=== PATIENT | female | born 1970 | race Caucasian/White ===

== ENCOUNTER 2017-04-03 04:37 | Inpatient (IN) ==
[2017-04-03 04:49] LABS: Bilirubin,Urine Negative (Negative); Blood,Urine Trace (Negative); Clarity,Urine Clear (Clear); Color,Urine Yellow (Yellow); Glucose,Urine (UA) >=1000 mg/dL (Normal); Ketones,Urine Negative (Negative); Leukocyte Esterase,Urine Small (Negative); Nitrite,Urine Negative (Negative); Protein,Urine Negative (Neg-Trace); Specific Gravity,Urine 1.019 (1.010-1.025); Urobilinogen,Urine Normal (Normal)
[2017-04-03 04:50] LABS: Bacteria,Urine None Seen per hpf (None-Few); Hyaline Casts,Urine None Seen per lpf (None-Few); Squamous Epithelial Cell,Urine Few per lpf (None-Few); WBC,Urine 30-50 per hpf (0-3)
[2017-04-03 04:53] LABS: Amphetamine Screen,Urine Negative ng/mL (Cutoff=1000); Barbiturate Screen,Urine Negative ng/mL (Cutoff=200); Benzodiazepines Screen,Urine Negative ng/mL (Cutoff=200); Cannabinoid Screen,Urine Negative ng/mL (Cutoff = 50); Cocaine Screen,Urine Negative ng/mL (Cutoff= 300); Opiate Screen,Urine Positive ng/mL (Cutoff=300); Phencyclidine Screen,Urine Negative ng/mL (Cutoff=25)
--- NOTE | 2017-04-03 04:53 | Emergency Department Note ---
Disposition Clinical Impression: Suicidal ideation Depression Qualifiers: Depression Type: unspecified Qualified Code(s): F32.9 - Major depressive disorder, single episode, unspecified Disposition: Admitted As Inpatient Condition: Good General Adult HPI - General Chief complaint: ED Psychiatric Symptoms Stated complaint: SI Time Seen by Provider: 04/03/17 04:39 Source: patient Mode of arrival: EMS Limitations: no limitations Nursing Notes Reviewed: Yes Vital Signs Reviewed: Yes - History of Present Illness HPI Narrative: 46-year-old female past medical history of diabetes, bipolar, depression. She presents with recurrent thoughts of suicide. She has a past medical history of this and has been admitted for the same. She states that the triggers include social stressors with her significant other. She said that she was trying to sleep tonight and can only think about harming herself so she decided to come to the emergency department. She denies taking any medications in an attempt to overdose. She denies an actual attempt. She denies having a fever or any new symptoms anywhere else in her body. She denies any abdominal pain or urinary difficulty. Consistency: constant Improves with: nothing Worsens with: nothing Associated symptoms: Reports: denies other symptoms Treatments Prior to Arrival: none - Related Data Previous Rx's Medication Instructions Recorded Atorvastatin Calcium [Lipitor] 20 mg PO DAILY #30 tablet 12/05/15 BuPROPion SR (12 HR) [Wellbutrin 300 mg PO DAILY #60 tablet.er 12/05/15 SR] Fexofenadine HCl 180 mg PO DAILY #30 tablet 12/05/15 Gabapentin [Neurontin] 300 mg PO BID #60 capsule 12/05/15 Gabapentin [Neurontin] 600 mg PO HS #30 capsule 12/05/15 Insulin ASPART [NovoLOG] 14 unit SQ TID #100 mls 12/05/15 Insulin Glargine [Lantus] 54 unit SQ HS #300 unit 12/05/15 Lisinopril/Hydrochlorothiazide 1 tab PO DAILY #30 tablet 12/05/15 [Zestoretic 10-12.5 mg Tablet] Norethindrone-E.estradiol-Iron 1 tab PO DAILY #30 tablet 12/05/15 [Junel Fe 1 mg-20 Mcg Tablet] Pantoprazole Sodium [Protonix] 20 mg PO DAILY #30 tablet. 12/05/15 Perphenazine 4 mg PO HS #30 tablet 12/05/15 Tizanidine HCl 4 mg PO Q8H #90 tablet 12/05/15 TraZODone 50 mg PO HS PRN #30 tablet 12/05/15 carBAMazepine [Tegretol] 300 mg PO BID #60 tablet 12/05/15 clonazePAM [Klonopin] 0.5 mg PO TID #90 tablet 12/05/15 hydrOXYzine pamoate [HydrOXYzine 50 mg PO TID PRN #180 capsule 12/05/15 Pamoate] HYDROcodone/Acet 5/325 mg [[place] 1 tab PO Q6H PRN #12 tab 08/13/16 5-325 mg] Allergies Allergy/AdvReac Type Severity Reaction Status Date / Time citalopram [From Celexa] AdvReac Diarrhea Verified 04/03/17 04:38 [place] AdvReac Diarrhea Verified 04/03/17 04:38 risperidone [From Risperdal] AdvReac Swelling Verified 04/03/17 04:38 of the Eye topiramate [From Topamax] AdvReac Fainting Verified 04/03/17 04:38 All systems ED: reviewed and negative except as stated. Constitutional: Denies: fever ENT ED: Denies: throat pain Cardiovascular: Denies: chest pain Respiratory: Denies: cough Gastrointestinal: Denies: abdominal pain Musculoskeletal: Denies: back pain Endocrine: Denies: fatigue Past Medical History - Past Medical History Medical history: Reports: arthritis, diabetes, GERD, hyperlipidemia Psychiatric history: Reports: anxiety, bipolar, PTSD [employer] history: Reports: bilateral tubal ligation - Social History Smoking Status: Former smoker Smokeless Tobacco Status: No Alcohol use: Reports: occasionally Drug use: Reports: none Physical Exam - General Limitations: no limitations General appearance: alert, in no apparent distress - Head Head exam: atraumatic - Eye Eye exam: Present: normal appearance, PERRL - ENT ENT exam: normal exam, normal oropharynx - Neck Neck exam: Present: normal inspection - Chest Chest inspection: Present: normal inspection - Respiratory Respiratory exam: Present: normal lung sounds bilaterally. Absent: respiratory distress - Cardiovascular Cardiovascular exam: Present: regular rate, normal rhythm - Abdominal Exam Abdominal exam: Present: soft, Non-Tender - Extremities Exam Extremities exam: Present: normal inspection - Neurological Exam Neurological exam: Present: alert, oriented X3 - Psychiatric Psychiatric exam: Present: depressed - Skin Skin exam: Present: warm, dry Course Course Narrative: She is tearful on my exam and is not exhibiting a toxidrome. We will obtain medical clearance for psychiatric evaluation. All labwork is resulted aside from the Tegretol level. She does have elevated white blood cells in the urine but no bacteria are seen. We will go ahead and culture this urine. In my interview the patient she denies any urinary symptoms. In addition she is not febrile has no suprapubic pain and no flank pain. Additionally she denies vaginal discharge. She is cleared for 1A evaluation. 1A will admit Vital Signs Temperature 98.5 F 04/03/17 04:39 Pulse Rate 92 04/03/17 04:39 Respiratory Rate 18 04/03/17 04:39 Blood Pressure 129/84 04/03/17 04:39 O2 Sat by Pulse Oximetry 97 04/03/17 04:39 Temperature 98.5 F 04/03/17 04:39 Pulse Rate 92 04/03/17 04:39 Respiratory Rate 18 04/03/17 04:39 Blood Pressure 129/84 04/03/17 04:39 O2 Sat by Pulse Oximetry 97 04/03/17 04:39 Oxygen Delivery Oxygen Delivery Room Air Medical Decision Making - Medical Records Medical records reviewed: Yes I reviewed the patient's medical records. - Lab Data Lab results reviewed: Yes I reviewed the patient's lab results. Result diagrams: 04/03/17 05:00 04/03/17 05:00 Lab Results 04/03/17 04/03/17 04/03/17 Range/Units 04:41 04:41 05:00 WBC 10.8 (4.3-11.1) K/mcL RBC 4.16 (3.82-4.97) M/mcL Hgb 12.1 (11.5-15.4) g/dL Hct 36.6 (35.3-44.9) % MCV 88.0 (83.0-100.0) fL MCH 29.1 (28.0-33.3) pg MCHC 33.1 (31.6-35.5) g/dL RDW 12.6 (11.5-14.5) % Plt Count 246 (140-400) K/mcL MPV 9.3 L (9.4-12.4) fL Immature Gran % 0.6 (0-4) % Seg Neutrophils % 74.7 % Lymphocytes % 17.1 % Monocytes % 6.2 % Eosinophils % 1.1 % Basophils % 0.3 % Neutrophils # 8.1 (1.6-8.9) K/mcL Lymphocytes # 1.9 (0.6-4.6) K/mcL Monocytes # 0.7 (0.0-1.3) K/mcL Eosinophils # 0.1 (0.0-0.6) K/mcL Basophils # 0.0 (0.0-0.2) K/mcL Sodium (136-145) mEq/L Potassium (3.5-4.5) mEq/L Chloride (98-109) mEq/L Carbon Dioxide (19-29) mEq/L BUN (7-20) mg/dL Creatinine (0.57-1.11) mg/dL Est GFR ( Amer) (> 60) Est GFR (Non-Af Amer) (> 60) BUN/Creatinine Ratio (6-26) Glucose (70-99) mg/dL Calculated Osmolality (280-300) Calcium (8.6-10.8) mg/dL Urine Color Yellow (Yellow) Urine Clarity Clear (Clear) Urine pH 6.0 (5.0-8.0) pH Units Ur Specific [place] 1.019 (1.010-1.025) Urine Protein Negative (Neg-Trace) mg/dL Urine Glucose (UA) >=1000 H (Normal) mg/dL Urine Ketones Negative (Negative) mg/dL Urine Blood Trace H (Negative) Urine Nitrite Negative (Negative) Urine Bilirubin Negative (Negative) Urine Urobilinogen Normal (Normal) mg/dL Ur Leukocyte Esterase Small H (Negative) Urine Microscopic RBC 3-5 H (0-3) per hpf Urine Microscopic WBC 30-50 H (0-3) per hpf Ur Squamous Epith Cells Few (None-Few) per lpf Urine Bacteria None Seen (None-Few) per hpf Hyaline Casts None Seen (None-Few) per lpf Salicylates (15-30) mg/dL Urine Opiates Screen Positive H (Iynxhi=620) ng/mL Acetaminophen (10-30) mcg/mL Ur Barbiturates Screen Negative (Rcaprp=358) ng/mL Carbamazepine (4.0-12.0) mcg/mL Ur Phencyclidine Scrn Negative (Cutoff=25) ng/mL Ur Amphetamines Screen Negative (Odzfop=1615) ng/mL U Benzodiazepines Scrn Negative (Xrarxv=117) ng/mL Urine Cocaine Screen Negative (Cutoff= 300) ng/mL U Marijuana (THC) Screen Negative (Cutoff = 50) ng/mL Ethyl Alcohol (0-10) mg/dL 04/03/17 Range/Units 05:00 WBC (4.3-11.1) K/mcL RBC (3.82-4.97) M/mcL Hgb (11.5-15.4) g/dL Hct (35.3-44.9) % MCV (83.0-100.0) fL MCH (28.0-33.3) pg MCHC (31.6-35.5) g/dL RDW (11.5-14.5) % Plt Count (140-400) K/mcL MPV (9.4-12.4) fL Immature Gran % (0-4) % Seg Neutrophils % % Lymphocytes % % Monocytes % % Eosinophils % % Basophils % % Neutrophils # (1.6-8.9) K/mcL Lymphocytes # (0.6-4.6) K/mcL Monocytes # (0.0-1.3) K/mcL Eosinophils # (0.0-0.6) K/mcL Basophils # (0.0-0.2) K/mcL Sodium 135 L (136-145) mEq/L Potassium 4.0 (3.5-4.5) mEq/L Chloride 101 (98-109) mEq/L Carbon Dioxide 24 (19-29) mEq/L BUN 13 (7-20) mg/dL Creatinine 0.93 (0.57-1.11) mg/dL Est GFR ( Amer) > 60 (> 60) Est GFR (Non-Af Amer) > 60 (> 60) BUN/Creatinine Ratio 14 (6-26) Glucose 273 H (70-99) mg/dL Calculated Osmolality 290 (280-300) Calcium 8.9 (8.6-10.8) mg/dL Urine Color (Yellow) Urine Clarity (Clear) Urine pH (5.0-8.0) pH Units Ur Specific [place] (1.010-1.025) Urine Protein (Neg-Trace) mg/dL Urine Glucose (UA) (Normal) mg/dL Urine Ketones (Negative) mg/dL Urine Blood (Negative) Urine Nitrite (Negative) Urine Bilirubin (Negative) Urine Urobilinogen (Normal) mg/dL Ur Leukocyte Esterase (Negative) Urine Microscopic RBC (0-3) per hpf Urine Microscopic WBC (0-3) per hpf Ur Squamous Epith Cells (None-Few) per lpf Urine Bacteria (None-Few) per hpf Hyaline Casts (None-Few) per lpf Salicylates < 5.0 L (15-30) mg/dL Urine Opiates Screen (Prritk=685) ng/mL Acetaminophen 1.0 L (10-30) mcg/mL Ur Barbiturates Screen (Qzvfxt=161) ng/mL Carbamazepine 5.1 (4.0-12.0) mcg/mL Ur Phencyclidine Scrn (Cutoff=25) ng/mL Ur Amphetamines Screen (Jytucn=9323) ng/mL U Benzodiazepines Scrn (Dnayxn=611) ng/mL Urine Cocaine Screen (Cutoff= 300) ng/mL U Marijuana (THC) Screen (Cutoff = 50) ng/mL Ethyl Alcohol < 10 (0-10) mg/dL Attestation Statement - Attestation Attestation: I, Tavo Nails MD, personally evaluated this patient and discussed their management with the resident physician. I reviewed the resident's note and agree with the documented findings, medical decision making, and plan of care. 46-year-old female presents to the emergency department with a complaint of suicidal ideation. No attempt. No specific plan. History of depression and suicidal thoughts in the past. On examination patient is a well-developed well-nourished well-appearing female in no acute distress. She is alert and oriented 3. There is no cyanosis or diaphoresis. Breath sounds are clear and equal bilaterally. Heart regular rate and rhythm. Abdomen soft and nontender with normal bowel sounds. No gross focal neurological deficits. Labs reviewed. 1A psychiatry service consulted to evaluate the patient. At reevaluation patient was admitted to the [address] psychiatry unit.
[2017-04-03 05:17] LABS: Basophils % 0.3 %; Eosinophils # 0.1 K/mcL (0.0-0.6); Eosinophils % 1.1 %; Hematocrit 36.6 % (35.3-44.9); Hemoglobin 12.1 g/dL (11.5-15.4); Immature Granulocytes % 0.6 % (0-4); Lymphocytes # 1.9 K/mcL (0.6-4.6); Lymphocytes % 17.1 %; Mean Corpuscular HGB Conc 33.1 g/dL (31.6-35.5); Mean Corpuscular Hemoglobin 29.1 pg (28.0-33.3); Mean Platelet Volume 9.3 fL (9.4-12.4); Monocytes # 0.7 K/mcL (0.0-1.3); Monocytes % 6.2 %; Neutrophils # 8.1 K/mcL (1.6-8.9); Platelet Count 246 K/mcL (140-400); Red Blood Count 4.16 M/mcL (3.82-4.97); Red Cell Distribution Width 12.6 % (11.5-14.5); Segmented Neutrophils % 74.7 %
[2017-04-03 05:30] LABS: BUN/Creatinine Ratio 14 (6-26); Blood Urea Nitrogen 13 mg/dL (7-20); Calcium 8.9 mg/dL (8.6-10.8); Carbon Dioxide 24 mEq/L (19-29); Chloride 101 mEq/L (98-109); Glucose 273 mg/dL (70-99); Osmolality,Calculated 290 (280-300); Sodium 135 mEq/L (136-145); eGFR For African Americans > 60 (> 60); eGFR For Non-African Americans > 60 (> 60)
[2017-04-03 05:31] LABS: Ethanol < 10 mg/dL (0-10); Salicylate < 5.0 mg/dL (15-30)
[2017-04-03 05:50] LABS: Carbamazepine (Tegretol) 5.1 mcg/mL (4.0-12.0)
[2017-04-03] MEDS ORDERED: ALPRAZolam 0.5 MG TABLET PO PRN (10:36)
[2017-04-03] MEDS ORDERED: hydrOXYzine pamoate 25 MG CAPSULE PO PRN (10:39)
[2017-04-03] MEDS ORDERED: *HR* LORazepam 2 MG/ML VIAL IM PRN (10:39)
[2017-04-03] MEDS ORDERED: Mag Hydrox/Al Hydrox/Simeth 30 ML UDC PO PRN (10:39)
[2017-04-03] MEDS ORDERED: *HR* LORazepam 1 MG TABLET PO PRN (10:39)
[2017-04-03] MEDS ORDERED: Nicotine 2 MG GUM BC PRN (10:39)
[2017-04-03] MEDS ORDERED: Haloperidol Lactate 5 MG/ML VIAL IM PRN (10:39)
[2017-04-03] MEDS ORDERED: MOM Conc 10 ML UD.LIQ PO PRN (10:39)
[2017-04-03] MEDS ORDERED: Acetaminophen 325 MG TABLET PO PRN (10:39)
[2017-04-03] MEDS ORDERED: tiZANidine 4 MG TABLET PO SCH (10:45)
[2017-04-03] MEDS ORDERED: BuPROPion SR (12 HR) 150 MG TABLET PO SCH (10:45)
--- NOTE | 2017-04-03 11:05 | Psychiatry History & Physical ---
Date of Encounter: 04/03/17 Time of Encounter: 10:45 History of Present Illness Patient Stated Chief Complaint: Suicidal ideation, insomnia Medicare Admission Attestation: For traditional Medicare patients the provided hospital inpatient services are reasonable and necessary and in the case of services not specified as inpatient -only under 42 CFR 419.22 (n), that they are appropriately provided as inpatient services in accordance 42 CFR 412.3. For Critical Access Hospital the patient may reasonably be expected to be discharged or transferred to a hospital within 96 hours after admission to the Critical Access Hospital. Admitted From: Emergency Dept History of Present Illness: Ms. Shanta Gracia is a 46 year old female with history of bipolar disorder and PTSD presented to the emergency room with complaint of suicidal ideation and insomnia. Patient has not been compliant with her medication or appointments recently. Patient most recent admission was in 11/30/[address] pichardo. She reports poor sleep, mood swings, family distress. Also she admitted to using alcohol and THC in addition to smoking and caffeine. Patient medication list was referred to primary staff from her pharmacy. She admitted to having suicidal ideation but did not have any specific plans. Past Med Surg Social Fam HX - Past Medical History Medical history: arthritis, diabetes, GERD, hyperlipidemia - Past Psychiatric History Psychiatric history: Reports: bipolar, PTSD, previous psychiatric hospitalization Past psychiatric history details: Last hospitalization 11/29/2015 - Social History Smoking Status: Former smoker Smokeless Tobacco Status: No Alcohol use: occasionally Drug use: none Medications & Allergies Atorvastatin Calcium [Lipitor] 20 mg PO DAILY #30 tablet 12/05/15 [Rx] Fexofenadine HCl 180 mg PO DAILY #30 tablet 12/05/15 [Rx] Insulin ASPART [NovoLOG] 14 unit SQ TID #100 mls 12/05/15 [Rx] Insulin Glargine [Lantus] 54 unit SQ HS #300 unit 12/05/15 [Rx] Lisinopril/Hydrochlorothiazide [Zestoretic 10-12.5 mg Tablet] 1 tab PO DAILY # 30 tablet 12/05/15 [Rx] Norethindrone-E.estradiol-Iron [Junel Fe 1 mg-20 Mcg Tablet] 1 tab PO DAILY #30 tablet 12/05/15 [Rx] Pantoprazole Sodium [Protonix] 20 mg PO DAILY #30 diana. 12/05/15 [Rx] Tizanidine HCl 4 mg PO Q8H #90 tablet 12/05/15 [Rx] TraZODone 50 mg PO HS PRN #30 tablet 12/05/15 [Rx] carBAMazepine [Tegretol] 300 mg PO BID #60 tablet 12/05/15 [Rx] ALPRAZolam [Xanax 0.5 MG Tablet] 0.5 mg PO BID PRN 04/03/17 [History] BuPROPion SR (12 HR) [Wellbutrin SR] 150 mg PO BID 04/03/17 [History] Gabapentin [Neurontin] 600 mg PO QID 04/03/17 [History] HYDROcodone/Acet 10/325 mg [[place] 10-325 mg] 1 tab PO Q6HR PRN 04/03/17 [History ] Perphenazine 4 - 8 mg PO HS 04/03/17 [History] 3 Allergy/AdvReac Type Severity Reaction Status Date / Time citalopram [From Celexa] AdvReac Diarrhea Verified 04/03/17 04:38 [place] AdvReac Diarrhea Verified 04/03/17 04:38 risperidone [From Risperdal] AdvReac Swelling Verified 04/03/17 04:38 of the Eye topiramate [From Topamax] AdvReac Fainting Verified 04/03/17 04:38 Review of Systems Psychiatric: Reports: depression, suicidal ideation, mood swings Mental Status Exam Patient orientation: Yes Person, Yes Time, Yes Place Level of alertness: Alert Patient appearance: Appropriate, Well Groomed Behavior: calm, cooperative Psychomotor activity: Normal Eye contact: Maintains Eye Contact Mood description: Euthymic/stable, Anxious Affect description: congruent with mood, full range, dysphoric Speech pattern: Normal rate, Normal rhythm, Normal tone Speech volume: Normal Thought process: Linear, Goal Oriented Thought content: Yes Suicidal ideation, No Homicidal ideation, No Overt delusions Perceptual disturbances: No Auditory hallucinations, No Visual hallucinations Attention span: Capable of Focused Attention Memory description: Grossly Intact Patient reliability: Reliable Historian Intelligence estimate: Average Judgment: Limited Insight: Partial Results - Vital Signs Vital signs: Temp Pulse Resp BP Pulse Ox 98.5 F 92 18 129/84 97 04/03/17 04:39 04/03/17 04:39 04/03/17 04:39 04/03/17 04:39 04/03/17 04:39 - Labs Labs: Laboratory Last Values WBC 10.8 K/mcL (4.3-11.1) 04/03/17 05:00 RBC 4.16 M/mcL (3.82-4.97) 04/03/17 05:00 Hgb 12.1 g/dL (11.5-15.4) 04/03/17 05:00 Hct 36.6 % (35.3-44.9) 04/03/17 05:00 MCV 88.0 fL (83.0-100.0) 04/03/17 05:00 MCH 29.1 pg (28.0-33.3) 04/03/17 05:00 MCHC 33.1 g/dL (31.6-35.5) 04/03/17 05:00 RDW 12.6 % (11.5-14.5) 04/03/17 05:00 Plt Count 246 K/mcL (140-400) 04/03/17 05:00 MPV 9.3 fL (9.4-12.4) L 04/03/17 05:00 Immature Gran % 0.6 % (0-4) 04/03/17 05:00 Seg Neutrophils % 74.7 % 04/03/17 05:00 Lymphocytes % 17.1 % 04/03/17 05:00 Monocytes % 6.2 % 04/03/17 05:00 Eosinophils % 1.1 % 04/03/17 05:00 Basophils % 0.3 % 04/03/17 05:00 Neutrophils # 8.1 K/mcL (1.6-8.9) 04/03/17 05:00 Lymphocytes # 1.9 K/mcL (0.6-4.6) 04/03/17 05:00 Monocytes # 0.7 K/mcL (0.0-1.3) 04/03/17 05:00 Eosinophils # 0.1 K/mcL (0.0-0.6) 04/03/17 05:00 Basophils # 0.0 K/mcL (0.0-0.2) 04/03/17 05:00 Sodium 135 mEq/L (136-145) L 04/03/17 05:00 Potassium 4.0 mEq/L (3.5-4.5) 04/03/17 05:00 Chloride 101 mEq/L (98-109) 04/03/17 05:00 Carbon Dioxide 24 mEq/L (19-29) 04/03/17 05:00 BUN 13 mg/dL (7-20) 04/03/17 05:00 Creatinine 0.93 mg/dL (0.57-1.11) 04/03/17 05:00 Est GFR ( Amer) > 60 (> 60) 04/03/17 05:00 Est GFR (Non-Af Amer) > 60 (> 60) 04/03/17 05:00 BUN/Creatinine Ratio 14 (6-26) 04/03/17 05:00 Glucose 273 mg/dL (70-99) H 04/03/17 05:00 POC Glucose 226 (58-89) H 04/03/17 08:13 Calculated Osmolality 290 (280-300) 04/03/17 05:00 Calcium 8.9 mg/dL (8.6-10.8) 04/03/17 05:00 Urine Color Yellow (Yellow) 04/03/17 04:41 Urine Clarity Clear (Clear) 04/03/17 04:41 Urine pH 6.0 pH Units (5.0-8.0) 04/03/17 04:41 Ur Specific [place] 1.019 (1.010-1.025) 04/03/17 04:41 Urine Protein Negative mg/dL (Neg-Trace) 04/03/17 04:41 Urine Glucose (UA) >=1000 mg/dL (Normal) H 04/03/17 04:41 Urine Ketones Negative mg/dL (Negative) 04/03/17 04:41 Urine Blood Trace (Negative) H 04/03/17 04:41 Urine Nitrite Negative (Negative) 04/03/17 04:41 Urine Bilirubin Negative (Negative) 04/03/17 04:41 Urine Urobilinogen Normal mg/dL (Normal) 04/03/17 04:41 Ur Leukocyte Esterase Small (Negative) H 04/03/17 04:41 Urine Microscopic RBC 3-5 per hpf (0-3) H 04/03/17 04:41 Urine Microscopic WBC 30-50 per hpf (0-3) H 04/03/17 04:41 Ur Squamous Epith Cells Few per lpf (None-Few) 04/03/17 04:41 Urine Bacteria None Seen per hpf (None-Few) 04/03/17 04:41 Hyaline Casts None Seen per lpf (None-Few) 04/03/17 04:41 Salicylates < 5.0 mg/dL (15-30) L 04/03/17 05:00 Urine Opiates Screen Positive ng/mL (Nzdxyy=456) H 04/03/17 04:41 Acetaminophen 1.0 mcg/mL (10-30) L 04/03/17 05:00 Ur Barbiturates Screen Negative ng/mL (Zzxqqw=767) 04/03/17 04:41 Carbamazepine 5.1 mcg/mL (4.0-12.0) 04/03/17 05:00 Ur Phencyclidine Scrn Negative ng/mL (Cutoff=25) 04/03/17 04:41 Ur Amphetamines Screen Negative ng/mL (Ghrder=1575) 04/03/17 04:41 U Benzodiazepines Scrn Negative ng/mL (Bqtbke=474) 04/03/17 04:41 Urine Cocaine Screen Negative ng/mL (Cutoff= 300) 04/03/17 04:41 U Marijuana (THC) Screen Negative ng/mL (Cutoff = 50) 04/03/17 04:41 Ethyl Alcohol < 10 mg/dL (0-10) 04/03/17 05:00 Assessment and Plan (1) Suicidal ideation Current visit: Yes Status: Acute Plan: Admit inpatient for safety and stabilization, Close observation, Suicide Precautions per unit protocol, Encourage participation in unit milieu, Group Therapy, Monitor sleep, Monitor appetite Risks, benefits, side effects, alternatives discussed w/pt: Yes Patient agreeable to treatment: Yes (2) Bipolar disorder Current visit: Yes Status: Acute Plan: Admit inpatient for safety and stabilization, Close observation, Suicide Precautions per unit protocol, Encourage participation in unit milieu, Group Therapy, Monitor sleep, Monitor appetite Additional Plan: We will check Tegretol level and restart medication after review Risks, benefits, side effects, alternatives discussed w/pt: Yes Patient agreeable to treatment: Yes Qualifiers: Active/Remission status: in partial remission Most recent bipolar episode type: depressed Qualified Code(s): F31.75 - Bipolar disorder, in partial remission, most recent episode depressed
[2017-04-03] MEDS: Gabapentin 300 MG CAPSULE PO SCH ×3 (11:36→20:57)
[2017-04-03] MEDS: BuPROPion SR (12 HR) 150 MG TABLET PO SCH ×2 (11:36→20:58)
[2017-04-03] MEDS: carBAMazepine 200 MG TABLET PO SCH ×2 (11:38→20:58)
[2017-04-03] MEDS: Loratadine 10 MG TABLET PO SCH (11:39)
[2017-04-03] MEDS: Insulin LISPRO 300 UNITS/3 ML VIAL SQ SCH ×2 (11:40→16:09)
[2017-04-03 12:11] LABS: Hemoglobin A1C 10.5 %
[2017-04-03] MEDS ORDERED: Insulin LISPRO 300 UNITS/3 ML VIAL SQ SCH (15:00)
[2017-04-03] MEDS: traZODone 50 MG TABLET PO PRN (20:58)
[2017-04-03] MEDS: Perphenazine 2 MG TABLET PO SCH (20:58)
[2017-04-03] MEDS: Insulin DETEMIR 100 UNIT/ML X5UNITS SQ SCH (20:58)
[2017-04-03] MEDS ORDERED: INSULIN GLARGINE 54 UNIT SQ SCH (21:00)
[2017-04-03] MEDS: tiZANidine 4 MG TABLET PO PRN (21:03)
[2017-04-04] MEDS: Insulin LISPRO 300 UNITS/3 ML VIAL SQ SCH ×3 (09:05→16:48)
[2017-04-04] MEDS: Gabapentin 300 MG CAPSULE PO SCH ×4 (09:06→21:12)
[2017-04-04] MEDS: BuPROPion SR (12 HR) 150 MG TABLET PO SCH ×2 (09:06→21:12)
[2017-04-04] MEDS: carBAMazepine 200 MG TABLET PO SCH ×2 (09:07→21:12)
[2017-04-04] MEDS: Loratadine 10 MG TABLET PO SCH (09:07)
[2017-04-04] MEDS: NORETHINDRONE E ESTRADIOL IRON PO SCH (09:10)
--- NOTE | 2017-04-04 16:09 | Psychiatry Progress Note ---
Date of Encounter: 04/04/17 Time of Encounter: 15:00 Subjective Interval history: Patient seen for follow-up. She reports feeling better and denies any problems. She reported improvement in her mood and denies suicidal ideation. Her medications were reviewed and doses were corrected. Tegretol level was ordered but the results was inconsistent and repeat was ordered. She denies any suicidal ideation or mood swings. Review of Systems Psychiatric: Reports: depression, suicidal ideation, mood swings Objective: Exam Patient orientation: Yes Person, Yes Time, Yes Place Level of alertness: Alert Patient appearance: Appropriate, Well Groomed Behavior: calm, cooperative Psychomotor activity: Normal Eye contact: Maintains Eye Contact Mood description: Euthymic/stable, Labile Affect description: congruent with mood, full range, labile Speech pattern: Normal rate, Normal rhythm, Normal tone Speech volume: Normal Thought process: Linear, Goal Oriented Thought content: No Suicidal ideation, No Homicidal ideation, No Overt delusions Perceptual disturbances: No Auditory hallucinations, No Visual hallucinations Judgment: Fair Insight: Partial Results - Vital Signs Vital Signs: Temp Pulse Resp BP Pulse Ox 97.2 F L 78 16 132/77 97 04/04/17 09:00 04/04/17 09:00 04/04/17 09:00 04/04/17 09:00 04/03/17 04:39 Assessment and Plan (1) Suicidal ideation Current visit: Yes Status: Acute Plan: Continue hospitalization, Close observation, Suicide Precautions per unit protocol, Encourage participation in unit milieu, Group Therapy, Monitor sleep, Monitor appetite Risks, benefits, side effects, alternatives discussed w/pt: Yes Patient agreeable to treatment: Yes (2) Bipolar disorder Current visit: Yes Status: Acute Plan: Continue hospitalization, Close observation, Suicide Precautions per unit protocol, Encourage participation in unit milieu, Group Therapy, Monitor sleep, Monitor appetite Risks, benefits, side effects, alternatives discussed w/pt: Yes Patient agreeable to treatment: Yes Qualifiers: Active/Remission status: in partial remission Most recent bipolar episode type: depressed Qualified Code(s): F31.75 - Bipolar disorder, in partial remission, most recent episode depressed Consult Discharge Plan - Plan Referrals: NONE,PCP [Primary Care Provider] -
[2017-04-04] MEDS: Insulin DETEMIR 100 UNIT/ML X5UNITS SQ SCH (21:11)
[2017-04-04] MEDS: Perphenazine 2 MG TABLET PO SCH (21:12)
[2017-04-04] MEDS: traZODone 50 MG TABLET PO PRN (23:20)
[2017-04-04] MEDS: tiZANidine 4 MG TABLET PO PRN (23:20)
[2017-04-05] MEDS: Insulin LISPRO 300 UNITS/3 ML VIAL SQ SCH ×3 (08:25→17:02)
[2017-04-05] MEDS: BuPROPion SR (12 HR) 150 MG TABLET PO SCH ×2 (08:42→20:29)
[2017-04-05] MEDS: Gabapentin 300 MG CAPSULE PO SCH ×4 (08:44→20:25)
[2017-04-05] MEDS: carBAMazepine 200 MG TABLET PO SCH ×2 (08:44→20:55)
[2017-04-05] MEDS: NORETHINDRONE E ESTRADIOL IRON PO SCH (08:45)
[2017-04-05] MEDS: Loratadine 10 MG TABLET PO SCH (08:45)
--- NOTE | 2017-04-05 11:35 | Psychiatry Progress Note ---
Date of Encounter: 04/05/17 Time of Encounter: 11:33 Subjective Interval history: Patient is here for follow-up. She reported improved sleep and denied any suicidal ideation. I shared with her the lab results including hemoglobin A1c of 10.5 due to noncompliance with medication. Current blood sugars are improving. Also I will repeat Tegretol level in the morning. She is participating and groups in activities and denies any anxiety or irritability. Review of Systems Psychiatric: Reports: depression, suicidal ideation, mood swings Objective: Exam Patient orientation: Yes Person, Yes Time, Yes Place Level of alertness: Alert Patient appearance: Appropriate, Well Groomed Behavior: calm, cooperative, anxious Psychomotor activity: Normal Eye contact: Maintains Eye Contact Mood description: Euthymic/stable, Anxious Affect description: congruent with mood, labile Speech pattern: Normal rate, Normal rhythm, Normal tone Speech volume: Normal Thought process: Linear, Goal Oriented Thought content: No Suicidal ideation, No Homicidal ideation, No Overt delusions Perceptual disturbances: No Auditory hallucinations, No Visual hallucinations Judgment: Fair Insight: Partial Results - Vital Signs Vital Signs: Temp Pulse Resp BP Pulse Ox 97.2 F L 79 16 128/76 97 04/05/17 09:00 04/05/17 09:00 04/05/17 09:00 04/05/17 09:00 04/03/17 04:39 - Labs Labs: Laboratory Results - last 24 hr 04/04/17 04/04/17 04/05/17 16:40 20:56 08:20 POC Glucose 116 H 176 H 75 Assessment and Plan (1) Suicidal ideation Current visit: Yes Status: Acute Plan: Continue hospitalization, Close observation, Suicide Precautions per unit protocol, Encourage participation in unit milieu, Group Therapy, Monitor sleep, Monitor appetite Risks, benefits, side effects, alternatives discussed w/pt: Yes Patient agreeable to treatment: Yes (2) Bipolar disorder Current visit: Yes Status: Acute Plan: Continue hospitalization, Close observation, Suicide Precautions per unit protocol, Encourage participation in unit milieu, Group Therapy, Monitor sleep, Monitor appetite Risks, benefits, side effects, alternatives discussed w/pt: Yes Patient agreeable to treatment: Yes Qualifiers: Active/Remission status: in partial remission Most recent bipolar episode type: depressed Qualified Code(s): F31.75 - Bipolar disorder, in partial remission, most recent episode depressed (3) PTSD (post-traumatic stress disorder) Current visit: No Status: Acute Consult Discharge Plan - Plan Referrals: NONE,PCP [Primary Care Provider] -
[2017-04-05] MEDS: Insulin DETEMIR 100 UNIT/ML X5UNITS SQ SCH (20:29)
[2017-04-05] MEDS: Perphenazine 2 MG TABLET PO SCH (20:29)
[2017-04-05] MEDS: traZODone 50 MG TABLET PO PRN (22:16)
[2017-04-06] MEDS: Insulin LISPRO 300 UNITS/3 ML VIAL SQ SCH ×2 (08:25→11:41)
[2017-04-06] MEDS: carBAMazepine 200 MG TABLET PO SCH (08:33)
[2017-04-06] MEDS: Gabapentin 300 MG CAPSULE PO SCH ×2 (08:36→12:34)
[2017-04-06] MEDS: Loratadine 10 MG TABLET PO SCH (08:36)
[2017-04-06] MEDS: BuPROPion SR (12 HR) 150 MG TABLET PO SCH (08:36)
[2017-04-06] MEDS: NORETHINDRONE E ESTRADIOL IRON PO SCH (08:41)
[2017-04-06 10:00] VITALS: BP 117/79
--- NOTE | 2017-04-06 14:07 | Discharge Summary ---
Date of Encounter: 04/06/17 Time of Encounter: 14:00 Diagnosis - Discharge Diagnosis (1) Suicidal ideation Status: Acute (2) Bipolar disorder Status: Acute Qualifiers: Active/Remission status: in partial remission Most recent bipolar episode type: depressed Qualified Code(s): F31.75 - Bipolar disorder, in partial remission, most recent episode depressed (3) PTSD (post-traumatic stress disorder) Status: Acute Medications - Discharge Medications Atorvastatin Calcium [Lipitor] 20 mg PO DAILY #30 tablet 12/05/15 [Rx] Fexofenadine HCl 180 mg PO DAILY #30 tablet 12/05/15 [Rx] Insulin ASPART [NovoLOG] 14 unit SQ TID #100 mls 12/05/15 [Rx] Insulin Glargine [Lantus] 54 unit SQ HS #300 unit 12/05/15 [Rx] Lisinopril/Hydrochlorothiazide [Zestoretic 10-12.5 mg Tablet] 1 tab PO DAILY # 30 tablet 12/05/15 [Rx] Norethindrone-E.estradiol-Iron [Junel Fe 1 mg-20 Mcg Tablet] 1 tab PO DAILY #30 tablet 12/05/15 [Rx] Pantoprazole Sodium [Protonix] 20 mg PO DAILY #30 tablet. 12/05/15 [Rx] Tizanidine HCl 4 mg PO Q8H #90 tablet 12/05/15 [Rx] TraZODone 50 mg PO HS PRN #30 tablet 12/05/15 [Rx] carBAMazepine [Tegretol] 300 mg PO BID #60 tablet 12/05/15 [Rx] ALPRAZolam [Xanax 0.5 MG Tablet] 0.5 mg PO BID PRN 04/03/17 [History] BuPROPion SR (12 HR) [Wellbutrin SR] 150 mg PO BID 04/03/17 [History] Gabapentin [Neurontin] 600 mg PO QID 04/03/17 [History] HYDROcodone/Acet 10/325 mg [Coffeen 10-325 mg] 1 tab PO Q6HR PRN 04/03/17 [History ] Perphenazine 4 - 8 mg PO HS 04/03/17 [History] 3 Allergy/AdvReac Type Severity Reaction Status Date / Time citalopram [From Celexa] AdvReac Diarrhea Verified 04/03/17 04:38 [place] AdvReac Diarrhea Verified 04/03/17 04:38 risperidone [From Risperdal] AdvReac Swelling Verified 04/03/17 04:38 of the Eye topiramate [From Topamax] AdvReac Fainting Verified 04/03/17 04:38 Results Procedures and tests throughout hospitalization: Completed Lab Orders Category Date Time Status Carbamazepine (Tegretol) AM 0400 Lab 04/06/17 06:45 Completed Provider Date of admission: 04/04/17 11:55 Primary care physician: PCP NONE Discharging clinician: Candelario Boyd Assessment and Plan - Patient/Caregiver Discharge Instructions Activity: resume usual activities as tolerated Diet: regular diet - Follow up Plan Follow up with: [facility]GAD[facility] [Outside] (The above appointment is with Kira Womack, for outpatient psychiatric assessment and medication management services. Please arrive 30 minutes early to complete paperwork. Please bring your photo ID (bring proof of address if you do not have an ID) and medication list. The above appointment(s) reflects first availability. You may contact the office regularly to check for cancellations that may allow you to be seen sooner. Additionally, the new case packer assigned to you will contact you directly to schedule your intake appointment for case management and mental health counseling services. ) Functional capacity at discharge: independent ambulation Overall status at discharge: Stable Disposition: Home, Self-Care Hospital Course Hospital course: Ms. Shanta Gracia is a 46 year old female admitted for suicidal ideation and bipolar disorder exacerbation. For details of admission please see H&P On the units patient medications were reviewed, we corrected the dose of Wellbutrin. Initial Tegretol level was inaccurate, repeats level was therapeutic at 4.9. Patient showed improvement in her mood and affect she was not labile, speech was organized and not pressured, she reported improved sleep and improved energy. She denies suicidal ideation and denied any side effects to medication. Discharge plans were completed by social work and she was educated to the poor treatment compliance. On discharge patient was medically stable nonsuicidal, tolerated the medication without any side effects and motivated to continue follow-up. Discharge in stable condition. - Time Spent with Patient Total time spent providing and/or coordinating discharge services: Greater than 30 minutes Quality - Multiple Antipsychotics Patient discharged on 2 or more antipsychotic medications: No Procedures - Procedures Procedures: Medication Management, Crisis Stabilization, Supportive Therapy, Group Therapy, Psychoeducational Therapy Mental Status Exam - Mental Status Exam Patient orientation: Yes Person, Yes Time, Yes Place Level of alertness: Alert Patient appearance: Appropriate, Well Groomed Behavior: calm, cooperative Psychomotor activity: Normal Eye contact: Maintains Eye Contact Mood description: Euthymic/stable Affect description: congruent with mood, full range Speech pattern: Normal rate, Normal rhythm, Normal tone Speech Volume: Normal Thought process: Linear, Goal Oriented Thought Content: No Suicidal ideation, No Homicidal ideation, No Overt delusions Perceptual Disturbances: No Auditory hallucinations, No Visual hallucinations Judgment: Limited Insight: Partial
== END 2017-04-06 15:50 | disposition home or self-care (01) | DRG 753 ==
LOC: EMEROO 04:37 → 1ANU 04:37
PROVIDERS: ADMIT Psychiatry & Neurology Psychiatry; ATTEND Psychiatry & Neurology Psychiatry

== ENCOUNTER 2022-01-02 09:56 | Inpatient (IN) ==
[2022-01-02 11:21] LABS: Basophils # 0.2 K/mcL (0.0-0.2); Basophils % 1.2 %; Eosinophils % 0.3 %; Hematocrit 50.9 % (35.3-44.9); Hemoglobin 16.3 g/dL (11.5-15.4); Immature Granulocytes % 3.8 % (0-4); Lymphocytes # 1.8 K/mcL (0.6-4.6); Lymphocytes % 12.9 %; Mean Corpuscular Hemoglobin 28.3 pg (28.0-33.3); Mean Corpuscular Volume 88.4 fL (83.0-100.0); Mean Platelet Volume 9.4 fL (9.4-12.4); Monocytes % 7.6 %; Neutrophils # 10.2 K/mcL (1.6-8.9); Platelet Count 339 K/mcL (140-400); Red Blood Count 5.76 M/mcL (3.82-4.97); Red Cell Distribution Width 12.9 % (11.5-14.5); Segmented Neutrophils % 74.2 %; White Blood Count 13.7 K/mcL (4.3-11.1)
[2022-01-02 11:36] LABS: Alanine Aminotransferase 17 Units/L (7-52); Albumin 5.1 g/dL (3.5-5.7); Albumin/Globulin Ratio 1.7 (1.1-2.2); Alkaline Phosphatase 122 Units/L (34-104); Amylase 16 Units/L (29-103); Aspartate Amino Transferase 13 Units/L (13-39); BUN/Creatinine Ratio 11 (6-26); Bilirubin,Direct 0.1 mg/dL (0.0-0.2); Bilirubin,Indirect 0.3 mg/dL (0.0-1.0); Bilirubin,Total 0.4 mg/dL (0.3-1.0); Blood Urea Nitrogen 14 mg/dL (6-20); Carbon Dioxide 6 mEq/L (23-29); Chloride 91 mEq/L (98-107); Glucose 456 mg/dL (70-105); Lipase 37 Units/L (11-82); Osmolality,Calculated 280 (280-300); Potassium 4.4 mEq/L (3.5-5.1); Sodium 125 mEq/L (136-145); Total Protein 8.1 g/dL (6.4-8.9); eGFR For African Americans 56 (> 60); eGFR For Non-African Americans 46 (> 60)
[2022-01-02 11:39] LABS: Bilirubin,Urine Negative (Negative); Blood,Urine Small (Negative); Clarity,Urine Clear (Clear); Color,Urine Light-Yellow (Yellow); Glucose,Urine (UA) >=1000 mg/dL (Normal); Hyaline Casts,Urine Few per lpf (None Seen); Ketones,Urine >150 mg/dL (Negative); Leukocyte Esterase,Urine Negative (Negative); Mucus,Urine Few per lpf (None-Few); Nitrite,Urine Negative (Negative); PH,Urine 5.5 pH Units (5.0-8.0); Protein,Urine 100 mg/dL (Neg-Trace); RBC,Urine 0-3 per hpf (0-3); Specific Gravity,Urine 1.027 (1.010-1.025); Squamous Epithelial Cell,Urine Few per hpf (None-Few); Urobilinogen,Urine Normal (Normal); WBC,Urine 0-3 per hpf (0-3)
[2022-01-02] MEDS ORDERED: Ondansetron 4 MG/2 ML VIAL IVP ONE (11:45)
[2022-01-02] MEDS ORDERED: Insulin Regular, Human 100 UNIT/ML IV ONE (11:49)
[2022-01-02] MEDS ORDERED: 0.9 % Sodium Chloride 1,000 ML IVC ONE (11:53)
[2022-01-02] MEDS: 0.9 % Sodium Chloride 1,000 ML IVC ONE ×2 (11:59→12:37)
[2022-01-02] MEDS ORDERED: 0.9 % Sodium Chloride w KCl 40 MEQ/1,000 ML MLS IVC SCH (12:00)
[2022-01-02 12:45] LABS: VBG HCO3 6 mEq/L (21-27); VBG PCO2 25 mmHg (41-51); VBG PH 6.96 pH Units (7.32-7.42); VBG PO2 151 mmHg (25-50)
[2022-01-02 12:53] LABS: Influenza A PCR Negative (Negative); Influenza B PCR Negative (Negative); Resp. Syncytial Virus PCR Negative (Negative)
[2022-01-02 12:54] LABS: SARS-CoV-2 by PCR (In House) Negative (Negative)
[2022-01-02 14:44] LABS: VBG HCO3 6 mEq/L (21-27); VBG PCO2 25 mmHg (41-51); VBG PH 6.95 pH Units (7.32-7.42); VBG PO2 69 mmHg (25-50)
[2022-01-02] MEDS ORDERED: Ondansetron 4 MG/2 ML VIAL IVP PRN (14:51)
[2022-01-02] MEDS ORDERED: Naloxone 0.4 MG/ML INJ IVP PRN (14:51)
[2022-01-02] MEDS ORDERED: Acetaminophen 325 MG TABLET PO PRN (14:51)
[2022-01-02] MEDS ORDERED: *HR* Dextrose 50 % in Water (Syg) 50 ML SYRINGE IVP PRN (14:58)
[2022-01-02] MEDS ORDERED: Sodium Bicarbonate 150 MEQ in D5% in Water 1,000 ML IVC SCH (15:15)
[2022-01-02 15:18] LABS: Amphetamine Screen,Urine Negative ng/mL (Cutoff=1000); Barbiturate Screen,Urine Negative ng/mL (Cutoff=200); Benzodiazepines Screen,Urine Negative ng/mL (Cutoff=200); Cannabinoid Screen,Urine Positive ng/mL (Cutoff = 50); Cocaine Screen,Urine Negative ng/mL (Cutoff= 300); Opiate Screen,Urine Negative ng/mL (Cutoff=300); Phencyclidine Screen,Urine Negative ng/mL (Cutoff=25)
[2022-01-02 15:22] LABS: Magnesium 2.3 mg/dL (1.6-2.6); Phosphorous 4.4 mg/dL (2.7-4.5); Salicylate < 2.5 mg/dL (15.0-30.0)
[2022-01-02] MEDS: 0.45 % Sodium Chloride w/KCl 20 MEQ/1,000 ML MLS IVC SCH ×3 (16:49→19:18)
[2022-01-02 18:12] LABS: BUN/Creatinine Ratio 12 (6-26); Blood Urea Nitrogen 13 mg/dL (6-20); Calcium 7.9 mg/dL (8.6-10.3); Chloride 102 mEq/L (98-107); Glucose 167 mg/dL (70-105); Osmolality,Calculated 270 (280-300); Potassium 4.5 mEq/L (3.5-5.1); Sodium 128 mEq/L (136-145); eGFR For African Americans > 60 (> 60); eGFR For Non-African Americans 53 (> 60)
[2022-01-02] MEDS: D5% in 0.45% NACL w KCl 20 MEQ/1,000 ML MLS IVC PRN ×2 (18:21→22:43)
[2022-01-02 18:33] LABS: VBG HCO3 8 mEq/L (21-27); VBG PCO2 28 mmHg (41-51); VBG PH 7.04 pH Units (7.32-7.42); VBG PO2 68 mmHg (25-50)
[2022-01-02] MEDS: Pantoprazole 40 MG VIAL IVP SCH (19:53)
[2022-01-02] MEDS: *HR* Labetalol 20 MG/4 ML SYRINGE IVP PRN (19:53)
[2022-01-02] MEDS ORDERED: Ketorolac 30 MG/ML VIAL IVP ONE (22:34)
[2022-01-02] MEDS ORDERED: tiZANidine 4 MG TABLET PO PRN (22:51)
[2022-01-02] MEDS ORDERED: Perphenazine 8 MG TABLET PO PRN (22:52)
[2022-01-02 23:09] LABS: VBG HCO3 12 mEq/L (21-27); VBG PCO2 28 mmHg (41-51); VBG PH 7.23 pH Units (7.32-7.42); VBG PO2 102 mmHg (25-50)
[2022-01-02 23:21] LABS: Carbon Dioxide < 4 mEq/L (23-29)
[2022-01-02] MEDS: *HR* OxyCODONE/APAP 7.5/325 TABLET PO PRN (23:36)
[2022-01-02 23:56] LABS: BUN/Creatinine Ratio 9 (6-26); Blood Urea Nitrogen 8 mg/dL (6-20); Calcium 7.5 mg/dL (8.6-10.3); Carbon Dioxide 12 mEq/L (23-29); Chloride 104 mEq/L (98-107); Glucose 154 mg/dL (70-105); Osmolality,Calculated 267 (280-300); Potassium 3.7 mEq/L (3.5-5.1); Sodium 128 mEq/L (136-145); eGFR For African Americans > 60 (> 60); eGFR For Non-African Americans > 60 (> 60)
[2022-01-03] MEDS ORDERED: Perphenazine 8 MG TABLET PO PRN (00:07)
[2022-01-03] MEDS: 0.45 % Sodium Chloride w/KCl 20 MEQ/1,000 ML MLS IVC SCH ×4 (00:44→09:11)
[2022-01-03] MEDS: D5% in 0.45% NACL w KCl 20 MEQ/1,000 ML MLS IVC PRN (02:45)
[2022-01-03 03:20] LABS: Basophils # 0.1 K/mcL (0.0-0.2); Basophils % 0.5 %; Eosinophils % 0.4 %; Hematocrit 36.7 % (35.3-44.9); Hemoglobin 12.6 g/dL (11.5-15.4); Immature Granulocytes % 1.9 % (0-4); Lymphocytes # 3.5 K/mcL (0.6-4.6); Lymphocytes % 32.1 %; Mean Corpuscular HGB Conc 34.3 g/dL (31.6-35.5); Mean Corpuscular Hemoglobin 28.7 pg (28.0-33.3); Mean Corpuscular Volume 83.6 fL (83.0-100.0); Mean Platelet Volume 9.1 fL (9.4-12.4); Monocytes # 1.1 K/mcL (0.0-1.3); Monocytes % 9.8 %; Platelet Count 216 K/mcL (140-400); Red Blood Count 4.39 M/mcL (3.82-4.97); Red Cell Distribution Width 12.8 % (11.5-14.5); Segmented Neutrophils % 55.3 %; White Blood Count 10.8 K/mcL (4.3-11.1)
[2022-01-03 03:27] LABS: Estimated Average Glucose 329 mg/dl; Hemoglobin A1C 13.1 %
[2022-01-03 03:43] LABS: BUN/Creatinine Ratio 8 (6-26); Blood Urea Nitrogen 7 mg/dL (6-20); Calcium 7.6 mg/dL (8.6-10.3); Carbon Dioxide 16 mEq/L (23-29); Chloride 105 mEq/L (98-107); Glucose 124 mg/dL (70-105); Magnesium 1.8 mg/dL (1.6-2.6); Osmolality,Calculated 267 (280-300); Phosphorous 1.3 mg/dL (2.7-4.5); Potassium 3.4 mEq/L (3.5-5.1); Sodium 129 mEq/L (136-145); eGFR For African Americans > 60 (> 60); eGFR For Non-African Americans > 60 (> 60)
[2022-01-03 07:13] LABS: VBG HCO3 13 mEq/L (21-27); VBG PCO2 29 mmHg (41-51); VBG PH 7.28 pH Units (7.32-7.42); VBG PO2 173 mmHg (25-50)
[2022-01-03] MEDS ORDERED: Potassium Phosphate 44 MEQ in 0.9 % Sodium Chloride 250 ML IVPB ONE (07:22)
[2022-01-03] MEDS ORDERED: *HR* Dextrose 50 % in Water (Syg) 50 ML SYRINGE IVP PRN (07:23)
[2022-01-03] MEDS ORDERED: Dextrose Gel 15 GM/37.5 ML TUBE PO PRN ×2 (07:23)
[2022-01-03] MEDS ORDERED: D5% in Water 1,000 ML IVC PRN (07:23)
[2022-01-03 08:12] LABS: BUN/Creatinine Ratio 8 (6-26); Blood Urea Nitrogen 6 mg/dL (6-20); Calcium 7.5 mg/dL (8.6-10.3); Carbon Dioxide 14 mEq/L (23-29); Chloride 103 mEq/L (98-107); Glucose 181 mg/dL (70-105); Osmolality,Calculated 268 (280-300); Potassium 3.3 mEq/L (3.5-5.1); Sodium 128 mEq/L (136-145); eGFR For African Americans > 60 (> 60); eGFR For Non-African Americans > 60 (> 60)
[2022-01-03] MEDS: Insulin DETEMIR 100 UNIT/ML X5UNITS SUBQ SCH ×2 (08:45→21:44)
[2022-01-03] MEDS: *HR* Enoxaparin 40 MG/0.4 ML SYRINGE SQ SCH (09:12)
[2022-01-03] MEDS: Pantoprazole 40 MG VIAL IVP SCH (09:13)
[2022-01-03] MEDS: Insulin LISPRO 300 UNITS/3 ML VIAL SUBQ SCH ×3 (09:42→16:39)
[2022-01-03] MEDS ORDERED: Sennosides/Docusate Sodium TABLET PO PRN (09:54)
[2022-01-03] MEDS: polyethylene glycoL 3350 17 GM POWD.PACK PO SCH (10:14)
[2022-01-03] MEDS: *HR* Labetalol 20 MG/4 ML SYRINGE IVP PRN (10:36)
[2022-01-03 14:30] LABS: VBG HCO3 16 mEq/L (21-27); VBG PCO2 30 mmHg (41-51); VBG PH 7.34 pH Units (7.32-7.42); VBG PO2 114 mmHg (25-50)
[2022-01-03] MEDS ORDERED: Fluticasone Propionate Nasal 50 MCG/SPRAY BOTTLE NS PRN (15:51)
[2022-01-03] MEDS ORDERED: tiZANidine 4 MG TABLET PO PRN (15:51)
[2022-01-03] MEDS ORDERED: hydrOXYzine pamoate 25 MG CAPSULE PO PRN (16:07)
[2022-01-03] MEDS: Gabapentin 300 MG CAPSULE PO SCH ×2 (16:39→21:42)
[2022-01-03] MEDS: BuPROPion XL (24 HR) 150 MG TABLET PO SCH (21:43)
[2022-01-03] MEDS: CarBAMazepine 100 MG TABLET PO SCH (21:43)
[2022-01-03 23:26] LABS: BUN/Creatinine Ratio 6 (6-26); Blood Urea Nitrogen 4 mg/dL (6-20); Calcium 7.7 mg/dL (8.6-10.3); Carbon Dioxide 16 mEq/L (23-29); Chloride 99 mEq/L (98-107); Glucose 322 mg/dL (70-105); Osmolality,Calculated 275 (280-300); Potassium 3.9 mEq/L (3.5-5.1); Sodium 128 mEq/L (136-145); eGFR For African Americans > 60 (> 60); eGFR For Non-African Americans > 60 (> 60)
[2022-01-04] MEDS: Insulin LISPRO 300 UNITS/3 ML VIAL SUBQ SCH ×3 (08:39→16:43)
[2022-01-04] MEDS: CarBAMazepine 100 MG TABLET PO SCH ×3 (08:40→21:26)
[2022-01-04] MEDS: Insulin DETEMIR 100 UNIT/ML X5UNITS SUBQ SCH (08:40)
[2022-01-04] MEDS: polyethylene glycoL 3350 17 GM POWD.PACK PO SCH (08:40)
[2022-01-04] MEDS: Loratadine 10 MG TABLET PO SCH (08:41)
[2022-01-04] MEDS: Gabapentin 300 MG CAPSULE PO SCH ×4 (08:41→21:26)
[2022-01-04] MEDS: *HR* Enoxaparin 40 MG/0.4 ML SYRINGE SQ SCH (08:53)
[2022-01-04] MEDS: BuPROPion XL (24 HR) 150 MG TABLET PO SCH ×2 (09:03→21:26)
[2022-01-04] MEDS: *HR* OxyCODONE/APAP 7.5/325 TABLET PO PRN (12:12)
[2022-01-04 12:41] LABS: Basophils % 0.3 %; Eosinophils # 0.1 K/mcL (0.0-0.6); Eosinophils % 1.6 %; Hemoglobin 12.3 g/dL (11.5-15.4); Immature Granulocytes % 0.5 % (0-4); Lymphocytes # 1.5 K/mcL (0.6-4.6); Lymphocytes % 23.3 %; Mean Corpuscular HGB Conc 35.1 g/dL (31.6-35.5); Mean Corpuscular Hemoglobin 28.8 pg (28.0-33.3); Mean Platelet Volume 9.3 fL (9.4-12.4); Monocytes # 0.6 K/mcL (0.0-1.3); Monocytes % 9.2 %; Platelet Count 159 K/mcL (140-400); Red Blood Count 4.27 M/mcL (3.82-4.97); Red Cell Distribution Width 12.9 % (11.5-14.5); Segmented Neutrophils % 65.1 %; White Blood Count 6.2 K/mcL (4.3-11.1)
[2022-01-04] MEDS ORDERED: Insulin DETEMIR 100 UNIT/ML X5UNITS SUBQ ONE (13:16)
[2022-01-04 13:17] LABS: BUN/Creatinine Ratio 7 (6-26); Blood Urea Nitrogen 4 mg/dL (6-20); Calcium 8.1 mg/dL (8.6-10.3); Carbon Dioxide 21 mEq/L (23-29); Chloride 97 mEq/L (98-107); Glucose 263 mg/dL (70-105); Magnesium 2.2 mg/dL (1.6-2.6); Osmolality,Calculated 274 (280-300); Phosphorous 2.1 mg/dL (2.7-4.5); Potassium 3.5 mEq/L (3.5-5.1); Sodium 129 mEq/L (136-145); eGFR For African Americans > 60 (> 60); eGFR For Non-African Americans > 60 (> 60)
[2022-01-04] MEDS ORDERED: Perphenazine 8 MG TABLET PO SCH (21:00)
[2022-01-04] MEDS ORDERED: Insulin DETEMIR 100 UNIT/ML X5UNITS SUBQ SCH (21:00)
[2022-01-05 03:27] VITALS: O2SAT 95
[2022-01-05 05:21] LABS: Basophils % 0.4 %; Eosinophils # 0.1 K/mcL (0.0-0.6); Eosinophils % 1.1 %; Hematocrit 33.3 % (35.3-44.9); Hemoglobin 11.3 g/dL (11.5-15.4); Immature Granulocytes % 0.8 % (0-4); Lymphocytes # 1.6 K/mcL (0.6-4.6); Lymphocytes % 33.1 %; Mean Corpuscular HGB Conc 33.9 g/dL (31.6-35.5); Mean Corpuscular Hemoglobin 28.3 pg (28.0-33.3); Mean Corpuscular Volume 83.5 fL (83.0-100.0); Mean Platelet Volume 9.8 fL (9.4-12.4); Monocytes # 0.6 K/mcL (0.0-1.3); Neutrophils # 2.5 K/mcL (1.6-8.9); Platelet Count 147 K/mcL (140-400); Red Blood Count 3.99 M/mcL (3.82-4.97); Red Cell Distribution Width 12.8 % (11.5-14.5); Segmented Neutrophils % 52.6 %; White Blood Count 4.8 K/mcL (4.3-11.1)
[2022-01-05 05:41] LABS: BUN/Creatinine Ratio 12 (6-26); Blood Urea Nitrogen 8 mg/dL (6-20); Calcium 7.9 mg/dL (8.6-10.3); Carbon Dioxide 26 mEq/L (23-29); Chloride 94 mEq/L (98-107); Glucose 430 mg/dL (70-105); Osmolality,Calculated 283 (280-300); Potassium 3.8 mEq/L (3.5-5.1); Sodium 128 mEq/L (136-145); eGFR For African Americans > 60 (> 60); eGFR For Non-African Americans > 60 (> 60)
[2022-01-05] MEDS: *HR* Enoxaparin 40 MG/0.4 ML SYRINGE SQ SCH (05:54)
[2022-01-05] MEDS: CarBAMazepine 100 MG TABLET PO SCH (08:18)
[2022-01-05] MEDS: Gabapentin 300 MG CAPSULE PO SCH ×2 (08:19→13:03)
[2022-01-05] MEDS: Loratadine 10 MG TABLET PO SCH (08:19)
[2022-01-05] MEDS: BuPROPion XL (24 HR) 150 MG TABLET PO SCH (08:20)
[2022-01-05] MEDS: Insulin LISPRO 300 UNITS/3 ML VIAL SUBQ SCH ×2 (08:20→13:02)
[2022-01-05] MEDS: polyethylene glycoL 3350 17 GM POWD.PACK PO SCH (08:20)
[2022-01-05] MEDS ORDERED: Cholecalciferol (D-3) 1,000 UNIT (25MCG) TABLET PO SCH (09:00)
[2022-01-05] MEDS ORDERED: Insulin DETEMIR 100 UNIT/ML X5UNITS SUBQ SCH (09:00)
[2022-01-05 10:58] VITALS: BP 145/94; PULSE 101; TEMP 98.4
[2022-01-05] MEDS: *HR* OxyCODONE/APAP 7.5/325 TABLET PO PRN (10:59)
== END 2022-01-05 13:39 | disposition home or self-care (01) | DRG 638 ==
LOC: EMEROOARM 09:56 → 2NNU 09:56 → SUATTDRO 16:23 → 2NNU 16:36 → 3ANU 01-03 16:32
PROVIDERS: ADMIT Pharmacist; ATTEND Pharmacist